=== PATIENT | male | born 1980 ===

== ENCOUNTER 2018-03-14 23:15 | Emergency (ER) | payer MEDICAID, OTHER ==
[2018-03-14 23:16] VITALS: BMI 28.4
--- NOTE | 2018-03-15 00:02 | ED PDOC ---
Arrival/HPI - General Historian: Patient <Marry Dumont PA-C - Last Filed: 03/14/18 23:58> <Preet Nicholson - Last Filed: 03/15/18 00:17> - General Chief Complaint: ENT Problem Time Seen by Provider: 03/14/18 23:57 - History of Present Illness Narrative History of Present Illness (Text): 03/14/18 23:58 37-year-old male complaining of pain to the left ear 4 days, he states that he believes he may have a abscess to the ear canal of the left ear. States that he had similar symptoms in the past and he was diagnosed with an abscess on the right ear before and had to take oral antibiotics. Denies any fever, chills, rash, URI, sore throat, headache, neck pain. Has no additional complaints. ( Marry Dumont PA-C) Past Medical History - Infectious Disease Hx of Infectious Diseases: None - Tetanus Immunization Tetanus Immunization: Unknown - Psychiatric Hx Depression: No Hx Emotional Abuse: No Hx Physical Abuse: No - Suicidal Assessment Feels Threatened In Home Enviroment: No <Marry Dumont PA-C - Last Filed: 03/14/18 23:58> Family/Social History Family/Social History: No Known Family HX Hx Alcohol Use: No Hx Substance Use Treatment: No <Marry Dumont PA-C - Last Filed: 03/14/18 23:58> Allergies/Home Meds <Marry Dumont PA-C - Last Filed: 03/14/18 23:58> <Preet Nicholson - Last Filed: 03/15/18 00:17> Allergies/Adverse Reactions: Allergies No Known Allergies Allergy (Verified 03/14/18 23:35) Home Medications: Home Meds Medication Instructions Recorded Confirmed GlipiZIDE [Glipizide] 10 mg PO BID 05/17/13 03/14/18 Metformin Hydrochloride [Metformin] 850 mg PO BID 05/17/13 03/14/18 Review of Systems - Review of Systems Constitutional: absent: Fatigue, Fevers ENT: Other (L ear pain). absent: Hearing Changes, Tinnitus, TMJ Pain, Sore Throat, Rhinorrhea, Sinus Congestion Cardiovascular: absent: Chest Pain, Palpitations Skin: absent: Rash, Pruritis, Skin Lesions Neurological: absent: Headache, Dizziness <Marry Dumont PA-C - Last Filed: 03/14/18 23:58> Physical Exam Temperature: Afebrile Blood Pressure: Normal Pulse: Regular Respiratory Rate: Normal Appearance: Positive for: Well-Appearing, Non-Toxic, Comfortable Pain Distress: None Mental Status: Positive for: Alert and Oriented X 3 - Systems Exam Head: Present: Atraumatic, Normocephalic Pupils: Present: PERRL Extroacular Muscles: Present: EOMI Conjunctiva: Present: Normal Ears: Present: NORMAL TM, Erythema (+minimal erythema to the lower portion of the L ear canal without edema, exudate or d/c), Normal Canal. No: TM Bulging, Fluid Mouth: Present: Moist Mucous Membranes Pharnyx: Present: Normal. No: ERYTHEMA, EXUDATE Neck: Present: Normal Range of Motion. No: Meningeal Signs, Lymphadenopathy Respiratory/Chest: Present: Clear to Auscultation, Good Air Exchange. No: Respiratory Distress, Accessory Muscle Use Cardiovascular: Present: Regular Rate and Rhythm, Normal S1, S2. No: Murmurs Back: Present: Normal Inspection Upper Extremity: Present: Normal Inspection. No: Cyanosis, Edema Lower Extremity: Present: Normal Inspection. No: Edema Neurological: Present: GCS=15, CN II-XII Intact, Speech Normal, Motor Func Grossly Intact, Normal Sensory Function Skin: Present: Warm, Dry, Normal Color. No: Rashes Psychiatric: Present: Alert, Oriented x 3, Normal Insight, Normal Concentration <Marry Dumont PA-C - Last Filed: 03/14/18 23:58> Vital Signs Temp Pulse Resp BP Pulse Ox 03/15/18 00:03 98.2 F 72 16 162/69 H 100 Medical Decision Making <Marry Dumont PA-C - Last Filed: 03/14/18 23:58> <Preet Nicholson - Last Filed: 03/15/18 00:17> ED Course and Treatment: 03/15/18 00:00 Plan : - cortisposin otic Patient is requesting an oral antibiotic, states that he feels that an abscess may form as it happend to him in the past involving the R ear. Rx for keflex given to the patient. However advised to hold off on taking the keflex and to follow up with primary care physician or ENT in 1-2 days without fail for re- evaluation to see if taking the keflex is necessary. Advised to take Rx otic medication as prescribed. Return to the emergency room at any time for any new or worsening symptoms. Patient states he fully agrees with and understands discharge instructions. States that he agrees with the plan and disposition. Verbalized and repeated discharge instructions and plan. I have given the patient opportunity to ask any additional questions. (Marry Dumont PA-C) - Medication Orders Current Medication Orders: Discontinued Medications Neomycin/Polymyxin/Hydrocortisone (Cortisporin Otic Soln) 4 drop STAT STA Stop: 03/15/18 00:08 - PA / SECURITIES CONSULTANT / Resident Statement AUBREY has reviewed & agrees with the documentation as recorded. <Marry Dumont PA-C - Last Filed: 03/14/18 23:58> - PA / SECURITIES CONSULTANT / Resident Statement AUBREY has reviewed & agrees with the documentation as recorded. <Preet Nicholson - Last Filed: 03/15/18 00:17> Disposition/Present on Arrival - Present on Arrival Any Indicators Present on Arrival: Yes History of DVT/PE: No History of Uncontrolled Diabetes: Yes Urinary Catheter: No History of Decub. Ulcer: No History Surgical Site Infection Following: None - Disposition Have Diagnosis and Disposition been Completed?: Yes Disposition Time: 00:00 Patient Plan: Discharge <Marry Dumont PA-C - Last Filed: 03/14/18 23:58> <Preet Nicholson - Last Filed: 03/15/18 00:17> - Disposition Diagnosis: Left ear pain, Left otitis externa Disposition: HOME/ ROUTINE Condition: STABLE Discharge Instructions (ExitCare): Outer Ear Infection (DC) Additional Instructions: Thank you for letting us take care of you today. You were treated for left ear pain, likely otitis externa. The emergency medical care you received today was directed at your acute symptoms. If you were prescribed any medication, please fill it and take as directed. It may take several days for your symptoms to resolve. Return to the Emergency Department if your symptoms worsen, do not improve, or if you have any other problems. Please contact your doctor in 2 days for re-evaluation and follow up / or call one of the physicians/clinics you have been referred to that are listed on the Patient Visit Information form that is included in your discharge packet. Bring any paperwork you were given at discharge with you along with any medications you are taking to your follow up visit. Our treatment cannot replace ongoing medical care by a primary care provider (PCP) outside of the emergency department. Thank you for allowing the [facility] team to be part of your care today. Prescriptions: Cephalexin [Keflex] 500 mg PO Q6 #28 capsule Neomycin/Polymyxin/Hydrocort [Cortisporin Otic Soln] 4 drop QID #1 bottle Referrals: Doug Farris DO [Staff Provider] - Follow up with primary Forms: [employer] (Tai[place]ese), WORK NOTE
[2018-03-15 00:04] VITALS: RESP 16; O2SAT 100
[2018-03-15] MEDS ORDERED: Neomycin/Polymyxin/Hydrocort Otic Soln BOTTLE AS STA (00:07)
[2018-03-15 00:38] VITALS: BP 150/72; PULSE 75; TEMP 98
== END 2018-03-15 00:38 | disposition home or self-care (01) ==
LOC: ED 23:15
DX: H60.92 Unspecified otitis externa, left ear (principal); H92.02 Otalgia, left ear